=== PATIENT | female | born 1970 ===

== ENCOUNTER 2017-12-01 07:43 | Day surgery (SDC) | payer OTHER ==
[2017-11-30 13:41] VITALS: BMI 29.9
[2017-12-01 08:56] VITALS: O2SAT 100
[2017-12-01] MEDS ORDERED: Propofol 10 mg/ml Inj (20 ML) ONE ×2 (09:31)
[2017-12-01] MEDS ORDERED: Etomidate 20 mg/10ml Inj IV ONE (09:35)
[2017-12-01] MEDS ORDERED: Pantoprazole 40 mg EC Tab PO STA (09:59)
[2017-12-01 10:09] VITALS: TEMP 97.9
[2017-12-01 11:11] VITALS: BP 116/56; PULSE 78; RESP 15
== END 2017-12-01 11:00 | disposition home or self-care (01) ==
LOC: C.ENDO 07:43
PROVIDERS: ATTEND Internal Medicine Gastroenterology
DX: R12 Heartburn (principal); R10.30 Lower abdominal pain, unspecified; R11.2 Nausea with vomiting, unspecified; K44.9 Diaphragmatic hernia without obstruction or gangrene; K20.9 Esophagitis, unspecified; K29.60 Other gastritis without bleeding
CPT/HCPCS: 43239; 82948; 84703; 88305; 88312; 88342; J2001; J2704